=== PATIENT | male | born 1975 | race African-American/Black ===

== ENCOUNTER 2017-05-03 10:55 | Emergency (ER) | payer BC ==
[~2017-05-03] VITALS: Ht 180.3 cm; Wt 77.1 kg
[2017-05-03] MEDS ORDERED: Lidocaine 1% MPF 10mg/ml 5ml IM ONE (12:00)
--- NOTE | 2017-05-03 12:09 | Emergency Room Report ---
History of Present Illness General Chief Complaint: Pain Source: Patient Present Illness HPI 42-year-old male presents to the ED complaining of left finger pain for the past 3 days. Patient complains of tenderness to palpation. Patient denies pain with movement of the digits. Patient denies use of medications for relief of symptoms. Patient reports biting nails and use of nail clippers. Patient denies other symptoms. Patient denies fever, nausea, vomiting, shortness of breath. Allergies: Coded Allergies: No Known Allergies (Unverified , 05/03/17) Patient History Past Medical History: none Past Surgical History: none Pertinent Family History: none Social History: Denies: smoking, alcohol use, drug use Immunizations: UTD Reviewed Nursing Documentation: PMH: Agreed, PSxH: Agreed Nursing Documentation-PMH Past Medical History: No Stated History Review of Systems All Other Systems: negative except mentioned in HPI Physical Exam Vital Signs Date Time Temp Pulse Resp B/P (MAP) Pulse Ox O2 Delivery O2 Flow Rate FiO2 05/03/17 11:16 98.2 59 17 126/79 99 Room Air Sp02 EP Interpretation: reviewed, normal General Appearance: normal inspection, well appearing, no apparent distress Head: normocephalic, atraumatic Respiratory: chest non-tender, lungs clear, normal breath sounds, speaking full sentences Cardiovascular #1: regular rate, rhythm, no edema, no murmur, no rub Musculoskeletal: normal range of motion, swelling - left fourth digit, tender - left fourth digit Neurologic: alert, oriented x3, responsive Skin: other - left hand, fourth digit: mild swelling and erythema on ulnar aspect of cuticle fold Procedures Incision and Drainage Incision and Drainage : Consent: Verbal Site: left hand fourth digit Blade Size: 11 Wound Location: upper extremity - fourth digit of left hand Wound's Depth, Shape: superficial Wound Explored: contaminated Anesthesia: 1% Lidocaine Volume Anesthetic (ccs): 4 Splint Applied?: No Sling Applied?: No Patient Tolerated: Well Complications: None Medical Decision Making PA Attestation Dr. Chavez s my supervising Physician whom patient management has been discussed with. Diagnostic Impression: Primary Impression: Paronychia of finger Qualified Codes: L03.012 - Cellulitis of left finger ER Course Pt. presents to the ED c/o left finger pain. Ddx considered but are not limited to paronychia, felon, cellulitis, abscess. Vital signs: are WNL, pt. is afebrile. H&PE are most consistent with paronychia. ORDERS: none required at this time, the diagnosis is clinical ED INTERVENTION: 5 mL of lidocaine used to perform digital block. Wound incised using an 11 blade and drained. Wound dressed following procedure. 500 mg Augmentin provided in ED. DISCHARGE: At this time pt. is stable for d/c to home. Will provide printed patient care instructions, and any necessary prescriptions. Care plan and follow up instructions have been discussed with the patient prior to discharge Last Vital Signs Date Time Temp Pulse Resp B/P (MAP) Pulse Ox O2 Delivery O2 Flow Rate FiO2 05/03/17 11:16 98.2 59 17 126/79 99 Room Air Status: improved Disposition: HOME, SELF-CARE Condition: Improved Scripts Ibuprofen* (MOTRIN*) 600 Mg Tablet 600 MG ORAL Q8H Y for For Pain, #30 TAB 0 Refills Prov: Ernesto Barajas 05/03/17 Amoxicillin/Potassium Clav 500-125 Tablet* (AUGMENTIN 500-125 TABLET*) 1 Each Tablet 1 TAB ORAL THREE TIMES A DAY, #14 TAB Prov: Ernesto Barajas 05/03/17 Patient Instructions: Paronychia, Sqjp-ce-Rdof Ernesto Barajas May 03, 2017 12:09
[2017-05-03] MEDS ORDERED: AUGMENTIN 500-1 EACH ORAL (12:43)
[2017-05-03] MEDS ORDERED: IBUPROFEN600 MG ORAL (12:43)
[2017-05-03 12:50] VITALS: BP 126/77
== END 2017-05-03 12:50 | disposition home or self-care (01) ==
LOC: EMR 11:35
DX: L03.012 Cellulitis of left finger (principal)
CPT/HCPCS: 10060; 99284

== ENCOUNTER 2017-07-19 17:04 | Emergency (ER) | payer BC ==
[~2017-07-19] VITALS: Ht 182.9 cm; Wt 77.1 kg
[~2017-07-19 17:04] MED LIST: AUGMENTIN 500-1 EACH ORAL; IBUPROFEN600 MG ORAL
[2017-07-19] MEDS ORDERED: NKM (17:09)
[2017-07-19] MEDS ORDERED: Dexamethasone 4mg/ml vial IM ONE (17:30)
[2017-07-19] MEDS ORDERED: BENADRYL25 MG ORAL (17:51)
[2017-07-19 17:52] VITALS: BP 131/76
--- NOTE | 2017-07-19 21:09 | Emergency Room Report ---
History of Present Illness General Chief Complaint: Skin Rash/Abscess Source: Patient Present Illness HPI The patient is a 42-year-old male presenting for rash. He states that this began approximately 1 month prior after vacation in [place]. He has noticed these lesions on his arms, chest, abdomen, and back. He has been trying hydrocortisone cream which has not been helping. He denies any pain, only itching. He denies other symptoms including fever, chills, abdominal pain, shortness of breath Allergies: Coded Allergies: No Known Allergies (Unverified , 05/03/17) Patient History Past Medical History: see triage record Pertinent Family History: none Reviewed Nursing Documentation: PMH: Agreed; PSxH: Agreed Nursing Documentation-PMH Past Medical History: No Stated History Review of Systems All Other Systems: negative except mentioned in HPI Physical Exam Vital Signs Date Time Temp Pulse Resp B/P (MAP) Pulse Ox O2 Delivery O2 Flow Rate FiO2 07/19/17 17:05 98.0 65 17 131/76 97 Room Air 98.1 Sp02 EP Interpretation: reviewed, normal General Appearance: no apparent distress, alert, GCS 15, non-toxic Head: normocephalic, atraumatic Eyes: bilateral eye normal inspection, bilateral eye PERRL ENT: hearing grossly normal, normal pharynx, no angioedema, normal voice Neck: full range of motion, supple/symm/no masses Respiratory: chest non-tender, lungs clear, normal breath sounds, speaking full sentences Cardiovascular #1: regular rate, rhythm, no edema Musculoskeletal: back normal, gait/station normal, normal range of motion, non- tender Neurologic: alert, oriented x3, responsive, motor strength/tone normal, sensory intact, speech normal Psychiatric: judgement/insight normal, memory normal, mood/affect normal, no suicidal/homicidal ideation Skin: rash - erythematous, circular lesions. No raised border. No central clearing. On arms, abdomen, chest, back Medical Decision Making PA Attestation Dr. Boyd is my supervising physician. Patient management was discussed with my supervising physician Diagnostic Impression: Primary Impression: Rash ER Course The patient is a 42-year-old male presenting for rash. Ddx considered include but not limited to insect bite, Pityriasis rosea, tinea, contact dermatitis, eczema, cellulitis PE: afebrile. NAD erythematous, circular lesions. No raised border. No central clearing. On arms, abdomen, chest, back. Non tender. No pattern The patient is given a dose of Decadron here He is discharged home with prescription for Benadryl. He has appointment to see his primary doctor next week. ER precautions are given Last Vital Signs Date Time Temp Pulse Resp B/P (MAP) Pulse Ox O2 Delivery O2 Flow Rate FiO2 07/19/17 17:52 98.0 17 131/76 97 Room Air 98.1 07/19/17 17:05 65 Status: improved Disposition: HOME, SELF-CARE Condition: Improved Scripts Diphenhydramine Hcl* (BENADRYL*) 25 Mg Capsule 25 MG ORAL Q6H PRN for Itching, #30 CAP Prov: MICHELE BRAND 07/19/17 Referrals: NOT CHOSEN IPA/MD,REFERRING (PCP) Patient Instructions: Rash Additional Instructions: I discussed my findings with the patient. All questions and concerns have been answered. Treatment and medication compliance have been addressed. I advised the patient that they need to follow up with PMD in 3-5 days. Return to ED if symptoms worsen, new symptoms arise, or if needed for any reason. Patient verbalized understanding of discharge instructions. MICHELE BRAND Jul 19, 2017 21:09
== END 2017-07-19 17:52 | disposition home or self-care (01) ==
LOC: EMR 17:30
DX: R21 Rash and other nonspecific skin eruption (principal)
CPT/HCPCS: 96372; 99283; J1100

== ENCOUNTER 2017-07-24 18:57 | Emergency (ER) | payer BC ==
[~2017-07-24] VITALS: Ht 180.3 cm; Wt 77.1 kg
[~2017-07-24 18:57] MED LIST changes: +BENADRYL25 MG ORAL; +NKM
[2017-07-24 19:23] VITALS: BP 128/80
--- NOTE | 2017-07-24 19:50 | Emergency Room Report ---
History of Present Illness General Chief Complaint: Skin Rash/Abscess Source: Patient Present Illness HPI 42-year-old male presents to the emergency department complaining of new onset upper respiratory symptoms consisting of nasal congestion, rhinorrhea, sinus pressure since yesterday. Patient also reports that he has had no improvement of a rash that he was seen here in the ED recently for her. Patient states that he has been applying hydrocortisone cream and states he has no relief. He also states he has been taking Benadryl. Patient reports dry itchy areas on his skin that started on his chest, abdomen progressed to upper arms and back in addition to face. Patient denies rash on his palms or soles. He denies fevers. Patient reports history of eczema when he was a child and a chronic lesion on the anterior neck. Patient is worried because he returned from [place] a week ago when he had onset of his rash. Patient states other members of the family have no symptoms. Denies lesions/rashes elsewhere on the body. Denies new medications other than benadryl and rx'd hydrocortisone. denies new body washes or creams. Denies swelling of the lips, tongue , throat or airway. Denies wheezing, or shortness of breath. Denies recent travel, recent illness or ill contacts. denies blisters, oral lesions, or sloughing of the skin. denies neck or back pain/stiffness. denies photophobia. Pt. denies hx of STD's or penile lesions, denies syphilis. Allergies: Coded Allergies: No Known Allergies (Unverified , 05/03/17) Patient History Past Medical History: see triage record Past Surgical History: none Pertinent Family History: none Immunizations: UTD Reviewed Nursing Documentation: PMH: Agreed; PSxH: Agreed Nursing Documentation-PMH Past Medical History: No Stated History Review of Systems All Other Systems: negative except mentioned in HPI Physical Exam Vital Signs Date Time Temp Pulse Resp B/P (MAP) Pulse Ox O2 Delivery O2 Flow Rate FiO2 07/24/17 19:05 98.2 64 16 128/80 98 Room Air 98.2 Sp02 EP Interpretation: reviewed, normal General Appearance: no apparent distress, alert, GCS 15, non-toxic Head: normocephalic, atraumatic ENT: hearing grossly normal, no angioedema, normal voice, other - no swelling of the lips or tongue. Neck: full range of motion Respiratory: lungs clear, normal breath sounds, no respiratory distress, no wheezing, speaking full sentences Cardiovascular #1: regular rate, rhythm, no edema Gastrointestinal: non tender, soft Rectal: deferred Musculoskeletal: back normal, gait/station normal, normal range of motion, non- tender Neurologic: alert, oriented x3, responsive, motor strength/tone normal, sensory intact, normal gait, speech normal, grossly normal Psychiatric: judgement/insight normal Skin: normal color, warm/dry, well hydrated, rash - hyper -pigmented plaques generalized on the abdomen, chest, Back, UE's and Thighs, Back of the neck, spares the palms and soles. no blisters no vesicles or sloughing. Lymphatic: no adenopathy Medical Decision Making PA Attestation Dr. elizabeth is my supervising Physician whom patient management has been discussed with. Diagnostic Impression: Primary Impression: Dermatitis Additional Impressions: Rash and nonspecific skin eruption Upper respiratory infection Qualified Codes: J06.9 - Acute upper respiratory infection, unspecified ER Course 42-year-old male presents to the emergency department complaining of new onset upper respiratory symptoms consisting of nasal congestion, rhinorrhea, sinus pressure since yesterday. Patient also reports that he has had no improvement of a rash that he was seen here in the ED recently for her. Patient states that he has been applying hydrocortisone cream and states he has no relief. He also states he has been taking Benadryl. Patient reports dry itchy areas on his skin that started on his chest, abdomen progressed to upper arms and back in addition to face. Patient denies rash on his palms or soles. He denies fevers. Patient reports history of eczema when he was a child and a chronic lesion on the anterior neck. Patient is worried because he returned from [place] a week ago when he had onset of his rash. Patient states other members of the family have no symptoms. Denies lesions/rashes elsewhere on the body. Denies new medications other than benadryl and rx'd hydrocortisone. denies new body washes or creams. Denies swelling of the lips, tongue , throat or airway. Denies wheezing, or shortness of breath. Denies recent travel, recent illness or ill contacts. denies blisters, oral lesions, or sloughing of the skin. denies neck or back pain/stiffness. denies photophobia. Pt. denies hx of STD's or penile lesions, denies syphilis. Ddx considered but are not limited to cellulitis, scabies, shingles, varicella, dermatitis, urticaria, eczema, tinea, viral exanthem, SJS Vital signs: are WNL, pt. is afebrile H&PE are most consistent with [ ] - no blisters or vesicles ORDERS: none required at this time, the diagnosis is clinical ED INTERVENTIONS: None required at this time. DISCHARGE: At this time pt. is stable for d/c to home. Will provide printed patient care instructions, and any necessary prescriptions. Care plan and follow up instructions have been discussed with the patient prior to discharge. Last Vital Signs Date Time Temp Pulse Resp B/P (MAP) Pulse Ox O2 Delivery O2 Flow Rate FiO2 07/24/17 19:23 98.2 16 128/80 98 Room Air 98.2 07/24/17 19:05 64 Disposition: HOME, SELF-CARE Condition: Stable Scripts Guaifenesin (Guaifenesin) 1,200 Mg Tab.er.12h 1200 MG PO BID for 10 Days, #20 TAB Prov: Phoebe Howe 07/24/17 Triamcinolone Acet (Triamcinolone Acetonide) 60 Ml Lotion 60 ML APPLIC BID, #60 ML Prov: Pohebe Howe 07/24/17 Clotrimazole* (LOTRIMIN*) 15 Gm Cream..g. 1 APPLIC TOPIC TWICE A DAY, #15 GM Prov: Phoebe Howe 07/24/17 Codeine/Promethazine Hcl* (PROMETHAZINE-CODEINE SYRUP*) 118 Ml Syrup 5 ML ORAL Q6H PRN for For Cough, #120 ML 0 Refills Prov: Phoebe Howe 07/24/17 Patient Instructions: Rash Additional Instructions: Take medications as directed. Follow up with a Primary Care Provider in 3-5 days, even if your symptoms have resolved. --Please review list of primary care clinics, if you do not already have a primary care provider Return sooner to ED if new symptoms occur, or current symptoms become worse. Do not drink alcohol, drive, or operate heavy machinery while taking Cough Syrup as this may cause drowsiness. - Please note that this Emergency Department Report was dictated using [employer] water treatment plant operator technology software, occasionally this can lead to erroneous entry secondary to interpretation by the dictation equipment. Phoebe Howe Jul 24, 2017 19:50
[2017-07-24] MEDS ORDERED: PROMETHAZINE-C118 M1 ORAL (19:52)
[2017-07-24] MEDS ORDERED: GUAIFENESIN1200 MG PO (19:52)
[2017-07-24] MEDS ORDERED: CLOTRIMAZOLE15 GM TOPIC (19:52)
[2017-07-24] MEDS ORDERED: KENALOG 0.1% LO60 ML APPLIC (19:52)
[2017-07-24 20:01] VITALS: BP 128/80
== END 2017-07-24 20:00 | disposition home or self-care (01) ==
LOC: EMR 19:10
DX: L30.9 Dermatitis, unspecified (principal); J06.9 Acute upper respiratory infection, unspecified
CPT/HCPCS: 99284

== ENCOUNTER 2018-02-26 09:28 | Emergency (ER) | payer BC ==
[~2018-02-26] VITALS: Ht 180.3 cm; Wt 77.1 kg
[~2018-02-26 09:28] MED LIST changes: +CLOTRIMAZOLE15 GM TOPIC; +GUAIFENESIN1200 MG PO; +KENALOG 0.1% LO60 ML APPLIC; +PROMETHAZINE-C118 M1 ORAL
[2018-02-26] MEDS ORDERED: ADULT WAL-100 MG/5 M ORAL (09:43)
[2018-02-26] MEDS ORDERED: TESSALON PERLE100 MG ORAL (09:43)
[2018-02-26] MEDS ORDERED: CLARITIN-D 121 EAC1 ORAL (09:43)
--- NOTE | 2018-02-26 09:49 | Emergency Room Report ---
History of Present Illness General Chief Complaint: Upper Respiratory Illness Source: Patient Present Illness HPI Patient is a 43-year-old male presented after increased nonproductive cough. Patient reports having symptoms for approximately one week. He denies any fever. Patient is a smoker. He denies any weight loss. The patient states that he had not been having severe headaches or vomiting. He reports having some intermittent nasal congestion associated with a sore throat. He denies any chest pain or shortness of breath. The patient presented to the emergency Department because cough had not been improving. Allergies: Coded Allergies: No Known Allergies (Unverified , 05/03/17) Patient History Past Medical History: see triage record Reviewed Nursing Documentation: PMH: Agreed; PSxH: Agreed Nursing Documentation-PMH Past Medical History: No Stated History Review of Systems All Other Systems: negative except mentioned in HPI Physical Exam Vital Signs Date Time Temp Pulse Resp B/P (MAP) Pulse Ox O2 Delivery O2 Flow Rate FiO2 02/26/18 09:31 97.5 63 20 121/74 97 Room Air General Appearance: well appearing, no apparent distress, alert, GCS 15 Head: normocephalic, atraumatic ENT: hearing grossly normal, normal voice, other - slight pharygeal erthema no exudate Neck: full range of motion, supple Respiratory: lungs clear, no respiratory distress, speaking full sentences Cardiovascular #1: normal peripheral pulses, regular rate, rhythm Musculoskeletal: normal inspection, no calf tenderness Neurologic: normal inspection, alert, oriented x3, responsive, medical oncology physician III-XII nml as tested, normal gait Psychiatric: mood/affect normal Skin: no rash Medical Decision Making Diagnostic Impression: Primary Impression: Upper respiratory infection ER Course Patient presented for cough. Differential diagnosis included but was not limited to upper respiratory infection, strep pharyngitis, bronchitis, pneumonia , pulmonary embolism, pericarditis, asthma, foreign body. Patient has a benign exam and does not appear to require any further imaging or laboratory testing at this time. The patient was noted to be smoker and has not had any recent chest imaging. The patient was offered chest x-ray which he declined. The patient denies any systemic symptoms. The patient was advised that he appears to have a viral respiratory infection which will not be improved by Z-Kelvin. The patient was advised to follow-up with her new primary care physician.The patient was given prescriptions for medications for symptomatically treatment of cough and upper respiratory congestion. Last Vital Signs Date Time Temp Pulse Resp B/P (MAP) Pulse Ox O2 Delivery O2 Flow Rate FiO2 02/26/18 09:31 97.5 63 20 121/74 97 Room Air Status: unchanged Disposition: HOME, SELF-CARE Condition: Stable Scripts Benzonatate* (TESSALON PERLE*) 100 Mg Capsule 100 MG ORAL THREE TIMES A DAY for cough, #30 PERLE Prov: Julio Guo MD 02/26/18 Guaifenesin* (ADULT WAL-TUSSIN*) 100 Mg/5 Ml Liquid 10 ML ORAL Q4H, #120 ML Prov: Julio Guo MD 02/26/18 Loratadine/Pseudoephedrine (CLARITIN-D 12 HOUR TABLET) 1 Each Tab.er.12h 1 TAB ORAL EVERY 12 HOURS, #14 TAB Prov: Julio Guo MD 02/26/18 Patient Instructions: Upper Respiratory Infection, Adult Julio Guo MD Feb 26, 2018 09:49
[2018-02-26 09:52] VITALS: BP 128/74
== END 2018-02-26 10:00 | disposition home or self-care (01) ==
LOC: EMR 09:48
DX: J06.9 Acute upper respiratory infection, unspecified (principal)
CPT/HCPCS: 99283